=== PATIENT | male | born 1930 | race Caucasian/White ===

== ENCOUNTER 2018-08-10 13:04 | Emergency (ER) | payer MEDICARE ==
--- NOTE | 2018-08-10 15:05 | RAD ---
RIGHT HIP TWO VIEWS: HISTORY: Right hip pain. FINDINGS: Degenerative changes are present. No fracture, dislocation, bony destruction is identified. Brachyt herapy seeds are seen in the region of the prostate. POS: C
[2018-08-10 15:32] LABS: Bilirubin Negative (Negative); Blood, Urine Negative (Negative); Clarity CLEAR (Clear); Glucose, Urine (Dipstick) Negative (Negative); Leukocyte Negative (Negative); Nitrite Negative (Negative); Protein, Urine (Dipstick) Negative (Neg-Trace); Specific Gravity, Urine 1.006 (1.002-1.036); Urobilinogen 0.2 mg/dL (0.2-1.0)
[2018-08-10] MEDS ORDERED: Ketorolac Tromethamine 60 MG/2 ML VIAL ONE (16:16)
--- NOTE | 2018-08-10 18:02 | RAD ---
LUMBAR SPINE 3 VIEWS: Date: 08/10/18 HISTORY: Low back pain. FINDINGS: There is evidence for laminectomy at L2 and L3. Extensive multilevel disc osteophytosis, as well as s ome facet arthrosis. Heterogeneous bony demineralization. No significant malalignment. IMPRESSION: Laminectomy changes at L2 and L3. Extensive spondylosis. Bony demineralization. POS: [facility]
== END 2018-08-10 17:40 | disposition home or self-care (01) ==
LOC: ERS 13:04
DX: M54.5 Low back pain (principal); E78.5 Hyperlipidemia, unspecified; I10 Essential (primary) hypertension; F41.9 Anxiety disorder, unspecified; Z79.899 Other long term (current) drug therapy; Z79.01 Long term (current) use of anticoagulants
CPT/HCPCS: 72100; 81003; 96372; J1885